=== PATIENT | male | born 1980 | race Caucasian/White ===

== ENCOUNTER 2017-10-28 19:09 | Emergency (ER) | payer SELFPAY ==
[~2017-10-28] VITALS: Ht 175.3 cm; Wt 88.5 kg
[~2017-10-28 19:09] MED LIST: IBUP200C PO; METH4TAB PO; MOME15OI TP; NAPR-243 PO; PRED20TA PO; SULF-222 PO; SULF1TAB35 PO; TRAM50TA2 PO; TRM50T PO
--- OUTSIDE RECORDS SUMMARY | 2017-10-28 19:13 | XMS REPORT ---
Author NINA Herron Organization [employer] Address Unknown Phone Unavailable Care Team Providers Care Weight Control Engineer Name Role Phone NINA ERICKSON CP Unavailable Allergies, Adverse Reactions, Alerts Substance Reaction Event Type Penicillin G Benzathine rash Drug Allergy Problems Problem Type Condition Code Onset Dates Condition Status Assessment Acute pain of right shoulder M25.511 Active Assessment Tobacco abuse Z72.0 Active Problem Tobacco abuse Z72.0 Active Medications Medication Code System Code Instructions Start Date End Date Status Dosage Cyclobenzaprine HCl [facility] [address]-24 10 MG Orally 2 times a day Jul 04, 2015 September 02, 2015 1 tablet Diclofenac Potassium [facility] [address]-77 50 MG Orally Twice a day Jul 04, 2015 September 02, 2015 1 tablet Procedures Procedure Coding System Code Date Office Visit, Est Pt., Level 3 CPT-4 71668 Jul 04, 2015 X-RAY EXAM OF SHOULDER CPT-4 99388 Jul 04, 2015 Vital Signs Date/Time: Jul 04, 2015 Temperature 98.0 F Weight 189.0 lbs Height 69 in BMI 27.91 Index Blood Pressure Diastolic 88 mmHg Blood Pressure Systolic 120 mmHg Cardiac Monitoring Heart Rate 56 bpm Results No Known Results Summary Purpose [employer] Submission
--- NOTE | 2017-10-28 19:18 | ED Upper Extremity ---
General Stated Complaint: R HAND FINGER BRUISING Source: patient Exam Limitations: no limitations History of Present Illness Date Seen by Provider: October 28, 2017 Time Seen by Provider: 19:17 Initial Comments TO ER WITH COMPLAINTS OF RIGHT PINKY FINGER INJURY. HE WAS WORKING ON HIS TRUCK WHEN THE TIP OF THE RIGHT PINKY FINGER WAS SMASHED IN A U JOINT. JUST PRIOR TO ARRIVAL.no lacerations or open wounds Onset: just prior to arrival Severity: moderate Pain/Injury Location: right 5th finger Allergies and Home Medications Allergies Coded Allergies: Penicillins (Verified Allergy, Unknown, 03/11/06) Home Medications Cephalexin 500 Mg Capsule, 500 MG PO TID Prescribed by: ASHLEY LEW on 10/28/171939 Prednisone 20 Mg Tablet, 40 MG PO DAILY Prescribed by: BRANDON WARREN on 01/08/152001 Tramadol Hcl 50 Mg Tablet, 50 MG PO Q4H PRN for PAIN Prescribed by: BRANDON WARREN on 01/08/152001 Trimethoprim/Sulfamethoxazole 1 Ea Tablet, 1 TAB PO BID Prescribed by: BRANDON WARREN on 01/08/152001 Patient Home Medication List Home Medication List Reviewed: Yes Constitutional: see HPI EENTM: see HPI Respiratory: no symptoms reported Genitourinary: no symptoms reported Musculoskeletal: no symptoms reported Skin: see HPI Psychiatric/Neurological: No Symptoms Reported Past [place]-Xfwudk-Nrclxc Hx Patient Social History Recent Foreign Travel: No Contact w/Someone Who Travel: No Immunizations Up To Date Tetanus Booster (TDap): Unknown Past Medical History Kidney Stones Family Medical History No Pertinent Family Hx Physical Exam Vital Signs Vital Signs - First Documented 10/28/17 19:14 Temp 98.0 Pulse 99 Resp 20 B/P (MAP) 147/96 (113) Pulse Ox 97 O2 Delivery Room Air Capillary Refill : General Appearance: WD/WN, no apparent distress HEENT: PERRL/EOMI, normal ENT inspection Neck: non-tender, full range of motion Respiratory: no respiratory distress, no accessory muscle use Gastrointestinal: normal bowel sounds, non tender Shoulder: normal inspection, non-tender Elbow/Forearm: normal inspection, non-tender Wrist: Yes normal inspection, Yes non-tender Hand: Right, swelling (over the distal phalanx right fifth finger with ecchymosis and small subungual hematoma) Neurologic/Psychiatric: alert, normal mood/affect, oriented x 3 Skin: normal color, warm/dry (I will) Procedures/Interventions Nail Trepanation : Method of Drainage: 18 gauge needle Sterile Dressing Applied: Yes Finger Splint: Yes Progress/Results/Core Measures Results/Orders My Orders Orders - ASHLEY LEW APRN Hand, Right, 3 Views (10/28/17 19:15) Rx-Hydrocodone/Apap 5-325 Mg (Rx-Vicodin (10/28/17 19:30) Vital Signs/I&O 10/28/17 19:14 Temp 98.0 Pulse 99 Resp 20 B/P (MAP) 147/96 (113) Pulse Ox 97 O2 Delivery Room Air Departure Impression Primary Impression: Closed fracture of tuft of distal phalanx of finger Disposition: HOME, SELF-CARE Condition: Stable Departure-Patient Inst. Decision time for Depature: 19:28 Referrals: NO,LOCAL PHYSICIAN (PCP/Family) Primary Care Physician Patient Instructions: Finger Fracture (DC) Add. Discharge Instructions: 1. Ice pack 2. Elevate finger 3. Follow-up with your doctor next week 4. Wear the finger splint for the next 2 weeks. Scripts Cephalexin (Keflex) 500 Mg Capsule 500 MG PO TID, #9 CAP Prov: ASHLEY LEW APRN 10/28/17 ASHLEY LEW APRN October 28, 2017 19:18
[2017-10-28] MEDS ORDERED: RX-HYDROCODONE/APAP 5/325 MG #4 TAB PK PO PRN (19:30)
[2017-10-28] MEDS ORDERED: HYDR-757 PO (19:30)
--- NOTE | 2017-10-28 19:38 | Diagnostic Imaging Report ---
INDICATION: Injury to hand, pain. Smashed finger between U joint on vehicle. TECHNIQUE: Three views of the right hand. CORRELATION STUDY: 02/09/2013. FINDINGS: Nondisplaced fracture involving the distal tuft of the little finger is present. Remaining osseous structures are intact and are otherwise unremarkable. Joint spaces are maintained. Density of the region of the nail bed is likely along the surface. IMPRESSION: 1. Relatively nondisplaced fracture involving the distal tuft of the right little finger. Dictated by: Dictated on workstation # [id number]
[2017-10-28] MEDS ORDERED: CEPH-507 PO (19:40)
[2017-10-28 19:54] VITALS: BP 147/96
== END 2017-10-28 19:54 | disposition home or self-care (01) ==
LOC: EDUNIT# 19:09 → ER 19:10
DX: S62.636A Displaced fracture of distal phalanx of right little finger, initial encounter for closed fracture (principal); Z88.0 Allergy status to penicillin; Z79.52 Long term (current) use of systemic steroids; W23.1XXA Caught, crushed, jammed, or pinched between stationary objects, initial encounter
CPT/HCPCS: 29130; 73130

== ENCOUNTER 2018-11-19 07:58 | Inpatient (IN) | payer SELFPAY ==
[~2018-11-19] VITALS: Ht 175.3 cm; Wt 89.8 kg
[~2018-11-19 07:58] MED LIST changes: +CEPH-507 PO; +HYDR-4226 PO
[2018-11-19] MEDS ORDERED: fentaNYL INJECTION 100 MCG/2 ML AMP IVP ONE (08:15)
[2018-11-19] MEDS ORDERED: cefTRIAXone FOR IV USE 2,000 MG in WATER (STERILE) FOR INJECTION 20 ML IV ONE (08:15)
--- NOTE | 2018-11-19 08:20 | ED EENT ---
History of Present Illness General Chief Complaint: Dental Problems/Pain Stated Complaint: ABSCESS IN MOUTH Source: patient, family Exam Limitations: no limitations History of Present Illness Date Seen by Provider: Nov 19, 2018 Time Seen by Provider: 08:15 Initial Comments This 38-year-old white male presents with progressive abscess from dental caries to the right mandibular area. The patient developed a toothache for days ago and was seen by his dentist the next day. He was placed on doxycycline 150 mg 4 times a day. The patient's pain and swelling have progressed and he now has a high fever. The patient's trismus has increased. He has having no airway impingement. He is able to handle his own secretions. He has been unable to eat due to the right jaw pain. Allergies and Home Medications Allergies Coded Allergies: Penicillins (Verified Allergy, Unknown, 03/11/06) Home Medications Cephalexin 500 Mg Capsule, 500 MG PO TID Prescribed by: ASHLEY LEW on 10/28/171939 Prednisone 20 Mg Tablet, 40 MG PO DAILY Prescribed by: BRANDON WARREN on 01/08/152001 Tramadol Hcl 50 Mg Tablet, 50 MG PO Q4H PRN for PAIN Prescribed by: BRANDON WARREN on 01/08/152001 Trimethoprim/Sulfamethoxazole 1 Ea Tablet, 1 TAB PO BID Prescribed by: BRANDON WARREN on 01/08/152001 Patient Home Medication List Home Medication List Reviewed: Yes Review of Systems Review of Systems Constitutional: see HPI, fever Eyes: Denies Photophobia Ears: Denies Pain Nose: denies epistaxis, denies pain Mouth: see HPI, pain (right mandibular area), swelling Throat: neck stiffness; denies painful swallowing, denies difficulty with fluids Respiratory: No cough Cardiovascular: No chest pain Gastrointestinal: No diarrhea, No nausea, No vomiting Musculoskeletal: No back pain; joint pain Skin: No change in color, No rash Neurological: No Symptoms Reported Hematologic/Lymphatic: No Symptoms Reported Immunological/Allergic: no symptoms reported Past Lamjuqg-Icycyp-Jlhoqw Hx Past Med/Social Hx: Reviewed Nursing Past Med/Soc Hx Patient Social History Type Used: Cigarettes Recent Foreign Travel: No Contact w/Someone Who Travel: No Immunizations Up To Date Tetanus Booster (TDap): Unknown Past Medical History Surgeries: No Respiratory: No Cardiac: No Neurological: No Sexually Transmitted Disease: No Kidney Stones Gastrointestinal: No Musculoskeletal: No Endocrine: No Cancer: No Psychosocial: No Integumentary: No Blood Disorders: No Family Medical History No Pertinent Family Hx Physical Exam Vital Signs Vital Signs - First Documented 11/19/18 08:05 Temp 98.1 Pulse 95 Resp 16 B/P (MAP) 142/98 (113) Pulse Ox 96 O2 Delivery Room Air Height, Weight, BMI Height: 5'9.00" Weight: 195lbs. oz. 88.338435ee; BMI Method:Stated General Appearance: WD/WN, mild distress Eyes: bilateral eye normal inspection Ears: bilateral ear auricle normal Nose: normal inspection; No discharge Mouth/Throat: mandibular swelling, other (there is a an apparent abscess over the right mandibular third molar. The fluctuant area is markedly tender. There is associated marked soft tissue swelling over the right mandible suggestive of a soft tissue abscess. There is no airway impingement. The patient is able to handle his own secretions) Neck: non-tender, supple, normal inspection Cardiovascular: normal peripheral pulses, regular rate, rhythm Respiratory: chest non-tender, lungs clear, normal breath sounds Gastrointestinal: normal bowel sounds, non tender, soft Neurologic/Psychiatric: no motor/sensory deficits, alert, normal mood/affect, oriented x 3 Skin: normal color, warm/dry Progress/Results/Core Measures Results/Orders Lab Results Laboratory Tests Test 11/19/18 08:12 11/19/18 08:25 Range/Units White Blood Count 17.6 H 4.3-11.0 10^3/uL Red Blood Count 5.66 4.35-5.85 10^6/uL Hemoglobin 17.0 13.3-17.7 G/DL Hematocrit 48 40-54 % Mean Corpuscular Volume 85 80-99 FL Mean Corpuscular Hemoglobin 30 25-34 PG Mean Corpuscular Hemoglobin Concent 36 32-36 G/DL Red Cell Distribution Width 13.6 10.0-14.5 % Platelet Count 199 130-400 10^3/uL Mean Platelet Volume 10.6 H 7.4-10.4 FL Neutrophils (%) (Auto) 85 H 42-75 % Lymphocytes (%) (Auto) 7 L 12-44 % Monocytes (%) (Auto) 8 0-12 % Eosinophils (%) (Auto) 0 0-10 % Basophils (%) (Auto) 0 0-10 % Neutrophils # (Auto) 15.0 H 1.8-7.8 X 10^3 Lymphocytes # (Auto) 1.2 1.0-4.0 X 10^3 Monocytes # (Auto) 1.4 H 0.0-1.0 X 10^3 Eosinophils # (Auto) 0.0 0.0-0.3 10^3/uL Basophils # (Auto) 0.0 0.0-0.1 10^3/uL Erythrocyte Sedimentation Rate 28 H 0-15 MM/HR Lactic Acid Level 0.85 0.50-2.00 MMOL/L My Orders Orders - JENN BARRIOS MD Blood Culture (11/19/18 08:11) Cbc With Automated Diff (11/19/18 08:11) Ct Maxillofacial Wo (11/19/18 08:11) Erythrocyte Sedimentation Rate (11/19/18 08:11) Lactic Acid Analyzer (11/19/18 08:11) Ns Iv 1000 Ml (Sodium Chloride 0.9%) (11/19/18 08:15) Ceftriaxone For Iv Use (Rocephin For I (11/19/18 08:15) Fentanyl Injection (Sublimaze Injection (11/19/18 08:15) Manual Differential (11/19/18 08:12) Medications Given in ED Current Medications Medications Dose Ordered Sig/Jessenia Route Start Time Stop Time Status Last Admin Dose Admin Ceftriaxone Sodium 2000 mg/ Sterile Water 20 ml @ 240 mls/hr ONCE ONCE IV 11/19/18 08:15 11/19/18 08:19 DC 11/19/18 09:08 240 MLS/HR Fentanyl Citrate 50 mcg ONCE ONCE IVP 11/19/18 08:15 11/19/18 08:16 DC 11/19/18 08:23 50 MCG Vital Signs/I&O 11/19/18 08:05 Temp 98.1 Pulse 95 Resp 16 B/P (MAP) 142/98 (113) Pulse Ox 96 O2 Delivery Room Air Progress Progress Note : Time: 09:12 Progress Note The patient received 50 g of fentanyl IV and 2 g of Rocephin IV. Patient's laboratory and CT evaluation demonstrated a probable abscess in the right mandibular region and an elevated white count of 17,000 with an associated elevated sedimentation rate of 28. The patient's lactic acid was normal. Telephone consultation was undertaken with Dr. Rodriguez who is kind enough to admit the patient orders are given written and the patient was transferred to the floor. Departure Communication (Admissions) Time/Spoke to Admitting Phy: 09:13 Dr. Rodriguez Impression Primary Impression: Dental abscess Disposition: ADMITTED INPATIENT Condition: Improved Admissions Decision to Admit Reason: Admit from ER (General) Decision to Admit/Date: Nov 19, 2018 Time/Decision to Admit Time: 09:14 Departure-Patient Inst. Referrals: NO,LOCAL PHYSICIAN (PCP/Family) Primary Care Physician JENN BARRIOS MD Nov 19, 2018 08:20
[2018-11-19 08:23] LABS: BASOPHILS % (AUTO) 0 % (0-10); EOSINOPHILS % (AUTO) 0 % (0-10); HEMATOCRIT 48 % (40-54); LYMPHOCYTES # (AUTO) 1.2 X 10^3 (1.0-4.0); LYMPHOCYTES % (AUTO) 7 % (12-44); MEAN CORPUSCULAR HEMOGLOBIN 30 PG (25-34); MEAN CORPUSCULAR HGB CONC 36 G/DL (32-36); MEAN CORPUSCULAR VOLUME 85 FL (80-99); MEAN PLATELET VOLUME 10.6 FL (7.4-10.4); MONOCYTES # (AUTO) 1.4 X 10^3 (0.0-1.0); MONOCYTES % (AUTO) 8 % (0-12); NEUTROPHILS % (AUTO) 85 % (42-75); PLATELET COUNT 199 10^3/uL (130-400); RED CELL DISTRIBUTION WIDTH 13.6 % (10.0-14.5); WHITE BLOOD COUNT 17.6 10^3/uL (4.3-11.0)
[2018-11-19] MEDS: NS IV 1000 ML 1,000 ML IV SCH ×3 (08:23→21:41)
[2018-11-19 08:55] LABS: ERYTHROCYTE SEDIMENTATION RATE 28 MM/HR (0-15)
--- NOTE | 2018-11-19 08:56 | NUR ---
LAB CONTACTED FOR BLOOD DRAW ET LAB REQUEST ER TO DRAW 2ND SET.
--- NOTE | 2018-11-19 08:58 | Diagnostic Imaging Report ---
PROCEDURE: CT maxillofacial without contrast. TECHNIQUE: Multiple contiguous axial images were obtained through the facial bones without the use of intravenous contrast. Auto Exposure Controls were utilized during the CT exam to meet ALARA standards for radiation dose reduction. INDICATION: Abscess in the right mouth. COMPARISON: 12/29/2013 FINDINGS: There is streak artifact from the dental hardware/amalgam. No acute osseous abnormality is seen in the face. The paranasal sinuses are clear. The orbits and globes appear normal. There is marked superficial and deep soft tissue edema, superficial and deep to the right mandible. There is a soft tissue density which measures 2.8 cm in diameter located near the mandibular body just superior to the right submandibular gland. There is also a soft tissue density lateral to the subendometrial gland which appears to cause mass effect on it, measuring 2.6 x 1.8 cm in size. Numerous prominent cervical chain lymph nodes are seen on the right. IMPRESSION: 1. Marked superficial and deep soft tissue edema about the right mandibular body with masslike density superior to the right submandibular gland which could represent enlarged lymph node or abscess. Additional soft tissue density lateral to the right submandibular gland likely represents a prominent lymph node. A postcontrast exam should be considered. 2. Additional right cervical lymph nodes are likely reactive. 3. No acute osseous abnormality is seen. Dictated by: Dictated on workstation # [id number]
[2018-11-19 09:24] LABS: LYMPHOCYTES % (MANUAL) 2 %; MONOCYTES % (MANUAL) 9 %; NEUTROPHILS % (MANUAL) 86 %; RBC MORPH NORMAL; REACTIVE LYMPHOCYTES 3 %
[2018-11-19] MEDS ORDERED: CLINDAMYCIN 600 MG/50 ML IVPB 50 ML IV ONE (09:30)
--- OUTSIDE RECORDS SUMMARY | 2018-11-19 09:30 | XMS REPORT | Continuity of Care Document ---
Author Organization Unknown Address Unknown Allergies Active Description Code Type Severity Reaction Onset Reported/Identified Relationship to Patient Clinical Status Yes Penicillins [id number] Drug Allergy Unknown N/A 03/11/2006 Medications There is no data. Problems Date Dx Coded Attending Type Code Diagnosis Diagnosed By 01/20/2011 782.0 DISTURBANCE OF SKIN SENSATION 01/08/2015 BRANDON HOOKS Ot 719.42 JOINT PAIN-UP/ARM 01/08/2015 BRANDON HOOKS Ot 726.33 OLECRANON BURSITIS 03/31/2016 SARAHY ROBLERO SPA COORDINATOR Ot M25.472 EFFUSION, LEFT ANKLE 03/31/2016 SARAHY ROBLERO SPA COORDINATOR Ot M25.572 PAIN IN LEFT ANKLE AND JOINTS OF LEFT FO 03/31/2016 SARAHY ROBLERO SPA COORDINATOR Ot S99.912A UNSPECIFIED INJURY OF LEFT ANKLE, INITIA 03/31/2016 SARAHY ROBLERO SPA COORDINATOR Ot X50.9XXA OTHER AND UNSPECIFIED OVREXRTN OR STRNOU 03/31/2016 SARAHY ROBLERO SPA COORDINATOR Ot Y92.[address] IN [facility] NON-INSTITUT (PRIVATE 03/31/2016 SARAHY ROBLERO SPA COORDINATOR Ot Y99.8 OTHER EXTERNAL CAUSE STATUS 04/02/2016 SARAHY ROBLERO SPA COORDINATOR Ot M25.472 EFFUSION, LEFT ANKLE 04/02/2016 SARAHY ROBLERO SPA COORDINATOR Ot M25.572 PAIN IN LEFT ANKLE AND JOINTS OF LEFT FO 04/02/2016 SARAHY ROBLERO SPA COORDINATOR Ot S99.912A UNSPECIFIED INJURY OF LEFT ANKLE, INITIA 04/02/2016 SARAHY ROBLERO SPA COORDINATOR Ot X50.9XXA OTHER AND UNSPECIFIED OVREXRTN OR STRNOU 04/02/2016 SARAHY ROBLERO SPA COORDINATOR Ot Y92.[address] IN [facility] NON-INST[facility] (PRIVATE 04/02/2016 SARAHY ROBLERO SPA COORDINATOR Ot Y99.8 OTHER EXTERNAL CAUSE STATUS 04/16/2016 SARAHY ROBLERO SPA COORDINATOR Ot M25.472 EFFUSION, LEFT ANKLE 04/16/2016 SARAHY ROBLERO SPA COORDINATOR Ot M25.572 PAIN IN LEFT ANKLE AND JOINTS OF LEFT FO 04/16/2016 SARAHY ROBLERO SPA COORDINATOR Ot S99.912A UNSPECIFIED INJURY OF LEFT ANKLE, INITIA 04/16/2016 SARAHY ROBLERO SPA COORDINATOR Ot X50.9XXA OTHER AND UNSPECIFIED OVREXRTN OR STRNOU 04/16/2016 SARAHY ROBLERO SPA COORDINATOR Ot Y92.[address] IN [facility] NON-[facility] (PRIVATE 04/16/2016 SARAHY ROBLERO SPA COORDINATOR Ot Y99.8 OTHER EXTERNAL CAUSE STATUS 10/28/2017 SARAHY ROBLERO SPA COORDINATOR Ot M25.472 EFFUSION, LEFT ANKLE 10/28/2017 SARAHY ROBLERO SPA COORDINATOR Ot M25.572 PAIN IN LEFT ANKLE AND JOINTS OF LEFT FO 10/28/2017 SARAHY ROBLERO SPA COORDINATOR Ot S99.912A UNSPECIFIED INJURY OF LEFT ANKLE, INITIA 10/28/2017 SARAHY ROBLERO SPA COORDINATOR Ot X50.9XXA OTHER AND UNSPECIFIED OVREXRTN OR STRNOU 10/28/2017 SARAHY ROBLERO SPA COORDINATOR Ot Y92.[address] IN [facility] NON[facility] (PRIVATE 10/28/2017 SARAHY ROBLERO SPA COORDINATOR Ot Y99.8 OTHER EXTERNAL CAUSE STATUS 10/28/2017 SARAHY ROBLERO SPA COORDINATOR Ot M25.472 EFFUSION, LEFT ANKLE 10/28/2017 SARAHY ROBLERO SPA COORDINATOR Ot M25.572 PAIN IN LEFT ANKLE AND JOINTS OF LEFT FO 10/28/2017 SARAHY ROBLERO SPA COORDINATOR Ot S99.912A UNSPECIFIED INJURY OF LEFT ANKLE, INITIA 10/28/2017 SARAHY ROBLERO SPA COORDINATOR Ot X50.9XXA OTHER AND UNSPECIFIED OVREXRTN OR STRNOU 10/28/2017 SARAHY ROBLERO SPA COORDINATOR Ot Y92.[address] IN [facility] NON-[facility] (PRIVATE 10/28/2017 SARAHY ROBLERO SPA COORDINATOR Ot Y99.8 OTHER EXTERNAL CAUSE STATUS Procedures There is no data. Results Test Result Range Complete blood count (CBC) with automated white blood cell (WBC) differential - 11/19/18 08:12 Blood leukocytes automated count (number/volume) 17.6 10*3/uL 4.3-11.0 Blood erythrocytes automated count (number/volume) 5.66 10*6/uL 4.35-5.85 Venous blood hemoglobin measurement (mass/volume) 17.0 g/dL 13.3-17.7 Blood hematocrit (volume fraction) 48 % 40-54 Automated erythrocyte mean corpuscular volume 85 [foz_us] 80-99 Automated erythrocyte mean corpuscular hemoglobin (mass per erythrocyte) 30 pg 25-34 Automated erythrocyte mean corpuscular hemoglobin concentration measurement (mass/volume) 36 g/dL 32-36 Automated erythrocyte distribution width ratio 13.6 % 10.0- 14.5 Automated blood platelet count (count/volume) 199 10*3/uL 130-400 Automated blood platelet mean volume measurement 10.6 [foz_us] 7.4-10.4 Automated blood neutrophils/100 leukocytes 85 % 42-75 Automated blood lymphocytes/100 leukocytes 7 % 12-44 Blood monocytes/100 leukocytes 8 % 0-12 Automated blood eosinophils/100 leukocytes 0 % 0-10 Automated blood basophils/100 leukocytes 0 % 0-10 Blood neutrophils automated count (number/volume) 15.0 10*3 1.8-7.8 Blood lymphocytes automated count (number/volume) 1.2 10*3 1.0-4.0 Blood monocytes automated count (number/volume) 1.4 10*3 0.0- 1.0 Automated eosinophil count 0.0 10*3/uL 0.0-0.3 Automated blood basophil count (count/volume) 0.0 10*3/uL 0.0-0.1 Manual absolute plasma cell count - 11/19/18 08:12 Blood monocytes/100 leukocytes 9 % NRG Manual blood segmented neutrophils/100 leukocytes 86 % NRG Manual blood lymphocytes/100 leukocytes 2 % NRG Blood lymphocytes variant/100 leukocytes 3 % NRG Blood erythrocyte morphology finding identification NORMAL NRG Erythrocyte sedimentation rate by westergren method - 11/19/18 08:12 Erythrocyte sedimentation rate by westergren method 28 mm 0-15 Blood lactic acid measurement (moles/volume) - 11/19/18 08:25 Blood lactic acid measurement (moles/volume) 0.85 mmol/L 0.50- 2.00 Encounters ACCT No. Visit Date/Time Discharge Status Pt. Type Provider Facility Loc./Unit Complaint [id number] 10/28/2017 19:10:00 10/28/2017 19:54:00 DIS Emergency ASHLEY LEW APRN [facility] ER R HAND FINGER BRUISING [id number] 03/31/2016 07:54:00 03/31/2016 23:59:59 CLS Outpatient SARAHY ROBLERO APRN [facility] RAD LT FOOT/ANKLE PAIN [id number] 01/08/2015 19:36:00 01/08/2015 20:08:00 DIS Emergency BRANDON HOOKS [facility] ER R ELBOW PAIN [id number] 05/03/2014 20:38:00 05/03/2014 21:06:00 DIS Emergency SHANNON EGAN MD [facility] ER [id number] 12/29/2013 20:40:00 12/29/2013 21:55:00 DIS Emergency [id number] 02/09/2013 20:17:00 02/09/2013 21:11:00 DIS Emergency [id number] 11/19/2018 08:27:00 Document Registration [id number] 01/08/2015 19:37:30 ACT Document Registration [id number] 04/30/2017 14:00:00 04/30/2017 23:59:59 CLS Outpatient YURI ARCHULETA [facility] [id number] 01/20/2011 15:46:00 Document Registration
--- NOTE | 2018-11-19 10:00 | NUR ---
RODNEY CAMI Polanco admitted to room 419-1, with an admitting diagnosis of RIGHT MANDIBULAR ABSCESS AND 2ND DEGREE DENTAL CARRIES, on 11/19/18 from ED via W/C, accompanied by ED STAFF. CAMI STEVENS introduced to surroundings, call light, bed controls, phone, TV, temperature control, lights, meal times, smoking policy, visitor policy, side rail policy, bathrooms and showers. Patient Rights given to patient in the handbook. CAMI STEVENS verbalizes understanding that [facility] is not responsible for the loss or damage to any personal effects or valuables that are kept in the patients possession during their hospitalization.
[2018-11-19 12:00] VITALS: BP 164/83
[2018-11-19] MEDS: ACETAMINOPHEN 500 MG TAB (TYLENOL) PO PRN ×2 (12:58→19:51)
[2018-11-19 15:42] VITALS: BP 118/61
[2018-11-19] MEDS: NS IV SCH ×4 (17:24→22:25)
[2018-11-19] MEDS: CLINDAMYCIN IV SCH ×4 (17:24→22:25)
[2018-11-19] MEDS: fentaNYL INJECTION 100 MCG/2 ML AMP IVP PRN (19:49)
[2018-11-19 19:58] VITALS: BP 139/88
[2018-11-19 23:39] VITALS: BP 145/88
[2018-11-20] VITALS (12 sets, daily range): BP systolic 128–163; BP diastolic 69–99
[2018-11-20] MEDS: CLINDAMYCIN IV SCH ×8 (04:04→22:46)
[2018-11-20] MEDS: NS IV SCH ×8 (04:04→22:46)
[2018-11-20] MEDS: ACETAMINOPHEN 500 MG TAB (TYLENOL) PO PRN ×2 (04:09→13:26)
[2018-11-20 04:44] LABS: BASOPHILS % (AUTO) 0 % (0-10); EOSINOPHILS % (AUTO) 0 % (0-10); HEMATOCRIT 45 % (40-54); HEMOGLOBIN 15.5 G/DL (13.3-17.7); LYMPHOCYTES # (AUTO) 0.8 X 10^3 (1.0-4.0); LYMPHOCYTES % (AUTO) 6 % (12-44); MEAN CORPUSCULAR HEMOGLOBIN 29 PG (25-34); MEAN CORPUSCULAR HGB CONC 35 G/DL (32-36); MEAN CORPUSCULAR VOLUME 84 FL (80-99); MEAN PLATELET VOLUME 10.7 FL (7.4-10.4); MONOCYTES # (AUTO) 1.3 X 10^3 (0.0-1.0); MONOCYTES % (AUTO) 9 % (0-12); NEUTROPHILS # (AUTO) 11.9 X 10^3 (1.8-7.8); NEUTROPHILS % (AUTO) 85 % (42-75); PLATELET COUNT 204 10^3/uL (130-400); RED CELL DISTRIBUTION WIDTH 13.7 % (10.0-14.5)
[2018-11-20 05:12] LABS: ERYTHROCYTE SEDIMENTATION RATE 47 MM/HR (0-15)
[2018-11-20] MEDS: NS IV 1000 ML 1,000 ML IV SCH ×2 (08:46→23:46)
[2018-11-20] MEDS ORDERED: ONDANSETRON 4 MG/2 ML (SDV) Z0FRAN ONE ×2 (10:25→11:46)
[2018-11-20] MEDS ORDERED: LIDOCAINE PF 2% 5 ML (XYLOCAINE) VIAL ONE (10:25)
[2018-11-20] MEDS ORDERED: fentaNYL INJECTION 100 MCG/2 ML AMP ONE (10:25)
[2018-11-20] MEDS ORDERED: proPOfol 200 MG/20 ML (DIPRIVAN) VIAL IV ONE (10:25)
[2018-11-20] MEDS ORDERED: MIDAZOLAM 2 MG/2 ML (VERSED) VIAL ONE (10:26)
[2018-11-20] MEDS ORDERED: SEVOFLURANE (ULTANE) 15 ML INHAL SOLN ONE ×3 (10:27→11:43)
[2018-11-20] MEDS ORDERED: LIDOCAINE/EPI 2% 1:100,00 (XYLOCAINE) 20 ML VIAL ONE (11:01)
[2018-11-20] MEDS ORDERED: NEO/POLY/BAC (NEOSPORIN) OINT 15 GM TUBE ONE (11:01)
[2018-11-20] MEDS ORDERED: ROPIVACAINE 5MG/ML 30ML VIAL ONE (11:18)
[2018-11-20] MEDS ORDERED: ROCURONIUM 10 MG/ML 5 ML SYRINGE IV ONE (11:34)
[2018-11-20] MEDS ORDERED: GLYCOPYRROLATE 0.2 MG/ML (ROBINUL) 2 ML VIAL ONE (11:44)
[2018-11-20] MEDS ORDERED: NEOSTIGMINE 1 MG/ML 5 ML SYRINGE ONE (11:44)
[2018-11-20] MEDS ORDERED: LACTATED RINGERS 1,000 ML IV PRN (11:45)
[2018-11-20] MEDS ORDERED: morphine INJ 10 MG/ML 1ML (SYR OR VIAL) ONE (11:46)
[2018-11-20] MEDS ORDERED: PROMETHAZINE INJ 25 MG/ML (PHENERGAN) AMP IVP ONE (12:15)
[2018-11-20] MEDS ORDERED: ONDANSETRON 4 MG/2 ML (SDV) Z0FRAN IVP PRN (12:15)
[2018-11-20] MEDS ORDERED: morphine INJ 10 MG/ML 1ML (SYR OR VIAL) IVP ONE (12:15)
[2018-11-20] MEDS ORDERED: MEPERIDINE (DEMEROL) INJ 50 MG/ML IVP ONE (12:15)
[2018-11-20] MEDS ORDERED: HYDROmorphone 2 MG/ML VIAL (DILAUDID) IV ONE (12:15)
[2018-11-20] MEDS: ceFAZolin INJECTION 1,000 MG in WATER (STERILE) FOR INJECTION 10 ML IV SCH ×2 (14:36→22:47)
[2018-11-20] MEDS: fentaNYL INJECTION 100 MCG/2 ML AMP IVP PRN ×2 (14:42→21:30)
[2018-11-21] VITALS: BP 139/75
[2018-11-21] MEDS: fentaNYL INJECTION 100 MCG/2 ML AMP IVP PRN ×3 (03:04→16:36)
[2018-11-21 03:55] VITALS: BP 137/81
[2018-11-21] MEDS: NS IV SCH ×8 (04:23→22:16)
[2018-11-21] MEDS: CLINDAMYCIN IV SCH ×8 (04:23→22:16)
[2018-11-21] MEDS: ceFAZolin INJECTION 1,000 MG in WATER (STERILE) FOR INJECTION 10 ML IV SCH ×3 (05:54→22:16)
[2018-11-21 08:03] VITALS: BP 116/78
[2018-11-21] MEDS: NS IV 1000 ML 1,000 ML IV SCH ×2 (10:07→22:15)
[2018-11-21] MEDS ORDERED: CLIN150C17 PO (11:07)
[2018-11-21 12:29] VITALS: BP 115/77
--- NOTE | 2018-11-21 14:58 | Anesthesia-General Post-Op ---
General Patient Condition Mental Status/LOC: Same as Preop Cardiovascular: Satisfactory Nausea/Vomiting: Absent Respiratory: Satisfactory Pain: Controlled Complications: Absent Post Op Complications Complications None Follow Up Care/Instructions Patient Instructions None needed. Anesthesia/Patient Condition Patient Condition Patient is doing well, no complaints, stable vital signs, no apparent adverse anesthesia problems. No complications reported per nursing. LISE BAUTISTA CRNA Nov 21, 2018 14:58
[2018-11-21 15:35] VITALS: BP 124/77
[2018-11-21] MEDS: KETOROLAC 30 MG/ML VIAL IVP PRN (17:32)
[2018-11-21 19:10] VITALS: BP 137/87
[2018-11-22 00:25] VITALS: BP 137/84
[2018-11-22] MEDS: NS IV SCH ×4 (04:41→10:18)
[2018-11-22] MEDS: CLINDAMYCIN IV SCH ×4 (04:41→10:18)
[2018-11-22] MEDS: KETOROLAC 30 MG/ML VIAL IVP PRN (04:47)
[2018-11-22] MEDS: ceFAZolin INJECTION 1,000 MG in WATER (STERILE) FOR INJECTION 10 ML IV SCH (06:46)
[2018-11-22] MEDS: NS IV 1000 ML 1,000 ML IV SCH (07:55)
[2018-11-22 08:10] VITALS: BP 139/85
--- NOTE | 2018-11-22 12:29 | NUR ---
IV REMOVED. SITE CLEAR. INSTRUCTIONS GIVEN AND DC'D WITH FATHER. DRESSING D/I ON RT NECK/FACE.
--- NOTE | 2018-11-22 14:04 | Diagnostic Imaging Report ---
INDICATION: Abscess. FINDINGS: Panorex radiograph reveals no bony destruction of the mandible, no abnormal periapical lucencies. IMPRESSION: No pathological finding apparent by [facility]. Dictated by: Dictated on workstation # [id number]
--- NOTE | 2018-12-14 16:46 | HISTORY AND PHYSICAL ---
DATE OF SERVICE: 11/19/2018 SERVICE: lab associate. ADMITTING DIAGNOSIS: Right submandibular abscess. HISTORY OF PRESENT ILLNESS: Upon evaluation, his vital signs are blood pressure 140/82, his pulse rate was 87, respiratory rate was 18, and temperature was 101.7. SOCIAL HISTORY: Positive for smoking. Denies any illicit drug use. PAST MEDICAL HISTORY: Noncontributory. PAST SURGICAL HISTORY: No surgeries or procedures reported. ALLERGIES: PENICILLIN ONLY. MEDICATIONS: He takes no medications. PHYSICAL EXAMINATION: HEENT: His oral cavity and oropharynx has grossly carious tooth #31 trismus. He can only open to 10 mm. His extraocular movements are intact. Pupils are equal, reactive, round and accommodate. NECK: His trachea is midline; however, he does have a right submandibular abscess with CT of an abscess, approximately 2 x 5 cm inferior to the mandible. HEART: Regular rate and rhythm. He has no costovertebral angle tenderness. LUNGS: No wheezes or rales. ABDOMEN: Soft, nontender, nondistended. He has no clubbing, cyanosis or edema. EXTREMITIES: He has full range of motion. RECTAL: We did not perform rectal exam as it is not pertinent. ASSESSMENT AND PLAN: He has a right submandibular abscess. He will be admitted, given intravenous antibiotics and scheduled for surgery at the earliest operating time for procedure. Job ID: [id number] DocumentID: [id number] Dictated Date: 12/14/2018 16:27:10 Tool Repair Technician Date: 12/14/2018 16:45:11 Dictated By: ANDREW MCGRAW DDS
--- NOTE | 2018-12-15 02:31 | OPERATIVE REPORT ---
DATE OF SERVICE: 11/20/2018 SERVICE: felt cutter. SURGEON: Andrew Mcgraw DDS. LOGISTICS SOLUTION MANAGER: ANESTHESIA: General endotracheal. COMPLICATIONS: There were no complications. BLOOD LOSS: Minimal. FLUIDS: 800 mL of crystalloid. Instrument, needle and sponge counts were correct x 2. PROCEDURE: Removal of tooth #31 and incision and drainage of a right submandibular abscess extraorally and intraorally as well as incision and drainage of submental abscess. HISTORY OF PRESENT ILLNESS AND INDICATION FOR PROCEDURE: The patient is a 38-year-old essentially healthy white male, who presented to the emergency room and was admitted to the emergency room to my service after speaking with the emergency room doctor. He was then placed on the fourth medical wing. At this point, he was evaluated and did indeed have a right submandibular abscess with trismus; he could only open to 10 to 15 mm. Obvious edema and tenderness and pain to palpation in that region. After a Panorex x-ray was completed, it was determined that tooth #31 was grossly carious and nonrestorable and was etiology of this abscess. After this, I spoke in extension with the patient. Advised him of his diagnosis, the risks versus benefits for the procedure as well as the risks versus benefits for treatment at this time. The appropriate time was also allowed for questions and these were answered. After these, the surgical consent was signed and he was scheduled for surgery at the earliest operating time. DESCRIPTION OF PROCEDURE: The patient was taken to the operating room and placed on the operating room table and the appropriate monitors were placed and anesthesia was induced via the oral endotracheal intubation without difficulty. Once this was secured, the surgeon left the room, scrubbed, returned donned sterile gowns and gloves, prepped and draped the patient in the usual standard sterile fashion. After this, with a pause of the local anesthesia approximately 2 fingerbreadths beneath the inferior border of the mandible just inferior to the greatest point of edema and then also performed a unilateral mandibular block on the right side of tissue. I used a 15-blade to excise through the skin and subcuticular tissue and then a [place] hemostat was used to bluntly dissect into the abscess cavity, at which point, we were able to drain significant amount of purulent drainage. Cultures were taken and then I also dissected lingually on the medial side of the mandible through the abscess cavity as well as up into the submental region. After this, we copiously irrigated with hydrogen peroxide and saline. I then placed two 16-Urdu red rubber catheters and these were sewn in place to maintain drainage of the abscess. This completed our procedure extraorally. I then extracted tooth #31 without difficulty and also made an incision in the buccal vestibule on the right side; however, I was not able to leave any purulent drainage at that point. After this, we placed the gauze for hemostasis. We had placed a throat pack, this was removed and then he was allowed to emerge from his general anesthetic until he was breathing spontaneously and then extubated and then transported to the recovery room where he was assessed to have stable vital signs, breathing spontaneously with a pulse ox of 99%. Job ID: [id number] DocumentID: [id number] Dictated Date: 12/14/2018 16:23:45 Film Inspector Date: 12/14/2018 23:28:50 Dictated By: ANDREW MCGRAW DDS
== END 2018-11-22 12:31 | disposition home or self-care (01) | DRG 137 ==
LOC: EDUNIT# 07:58 → ER 07:59 → 4TH 09:10
PROVIDERS: ADMIT Specialist; ATTEND Specialist
PROC: 0W933ZZ Drainage of Oral Cavity and Throat, Percutaneous Approach (ICD-10-PCS; 2018-11-20)
PROC: 0CDXXZ0 Extraction of Lower Tooth, Single, External Approach (ICD-10-PCS; 2018-11-20)
PROC: 0W930ZZ Drainage of Oral Cavity and Throat, Open Approach (ICD-10-PCS; principal; 2018-11-20 11:30)
DX: K12.2 Cellulitis and abscess of mouth (principal); L02.01 Cutaneous abscess of face; R25.2 Cramp and spasm; F17.210 Nicotine dependence, cigarettes, uncomplicated
CPT/HCPCS: 36415; 70355; 70486; 83605; 85007; 85025; 85027; 85652; 87040; 87070; 87075; 87076; 87081; 87185; 87205; 96361; 96365; 96375

== ENCOUNTER 2020-03-02 22:25 | Emergency (ER) | payer SELFPAY ==
[~2020-03-02 22:25] MED LIST changes: +CLIN150C17 PO
== END 2020-03-02 22:45 | disposition left against medical advice (07) ==
LOC: EDUNIT# 22:25 → ER 22:27
DX: M79.643 Pain in unspecified hand (principal)

== ENCOUNTER 2021-01-23 03:17 | Emergency (ER) | payer SELFPAY ==
[~2021-01-23] VITALS: Ht 175.2 cm; Wt 78.0 kg
[~2021-01-23 03:17] MED LIST changes: -CLIN150C17 PO; +CLIN150C18 PO
[2021-01-23] MEDS ORDERED: KETOROLAC 60 MG/2 ML VIAL IM STA (03:45)
[2021-01-23] MEDS ORDERED: COLCHICINE 0.6 MG (COLCRYS) TABLET PO ONE ×2 (03:45)
[2021-01-23] MEDS ORDERED: HYDROcodone/APAP 7.5 MG/325 MG (LORTAB, LORCET PLUS) TABLET PO STA (05:13)
[2021-01-23] MEDS ORDERED: predniSONE 20 MG TAB PO ONE (05:15)
--- NOTE | 2021-01-23 05:36 | ED Lower Extremity ---
General Chief Complaint: Lower Extremity Stated Complaint: LEFT FOOT,BIG TOE PAIN & SWELLING Nursing Triage Note: Pt ambulatory into ER with obvious limp. Pt complains of L. Foot/1st Toe Pain x2 days. Pt denies injury or trauma to toe. Pt has some swelling to big toe. Patient states that it hurts and goes up into top of foot area. Source: patient Exam Limitations: no limitations History of Present Illness Date Seen by Provider: Jan 23, 2021 Time Seen by Provider: 03:36 Initial Comments Here with report of left great toe pain. No known injury. Pain is been going on for 2 days and has worsened. Does have history of ankle injury but does not know what the injury was and had similar pain then. Denies fever chills. Onset: other (2 days ago) Severity: moderate Pain/Injury Location: left 1st toe Method of Injury: unknown Modifying Factors: Improves With Immobilization; Worse With Movement Allergies and Home Medications Allergies Coded Allergies: Penicillins (Verified Allergy, Unknown, 03/11/06) Home Medications No Active Prescriptions or Reported Meds Patient Home Medication List Home Medication List Reviewed: Yes Review of Systems Constitutional: see HPI; No chills, No fever Respiratory: no symptoms reported Cardiovascular: no symptoms reported Musculoskeletal: see HPI, joint pain, joint swelling Skin: change in color; No lesions Psychiatric/Neurological: No Symptoms Reported Past Jpkvgpq-Wmnwll-Oamzxb Hx Patient Social History Tobacco Use?: Yes Tobacco type used: Cigarettes Smoking Status: Current Everyday Smoker Use of E-Cig and/or Vaping dev: No Substance use?: No Alcohol Use?: Yes Alcohol type: Beer, Hard Liquor Alcohol Frequency: Several times a month Pt feels they are or have been: No Immunizations Up To Date Tetanus Booster (TDap): Unknown Influenza Vaccine Up-to-Date: No; Not Current Past Medical History Surgeries: No Respiratory: No Cardiac: No Neurological: No Sexually Transmitted Disease: No Kidney Stones Gastrointestinal: No Musculoskeletal: No Endocrine: No Cancer: No Psychosocial: No Integumentary: No Blood Disorders: No Family Medical History Reviewed Nursing Family Hx No Pertinent Family Hx Physical Exam Vital Signs Vital Signs - First Documented 01/23/21 03:21 Temp 36.8 Pulse 67 Resp 18 B/P (MAP) 169/99 (122) Pulse Ox 97 O2 Delivery Room Air Capillary Refill : Less Than 3 Seconds Height, Weight, BMI Height: 5'9.00" Weight: 198lbs. 0.0oz. 89.840276oa; 25.00 BMI Method:Stated General Appearance: WD/WN, no apparent distress Cardiovascular: regular rate, rhythm, no murmur Respiratory: lungs clear, normal breath sounds Feet: left foot limited range of motion, left foot pain, left foot soft tissue tenderness, left foot swelling, left foot other (All findings to the great toe including redness, swelling and significant pain on palpation or movement.) Neurologic/Psychiatric: alert, oriented x 3 Skin: warm/dry, other (Erythemic great toe on left) Progress/Results/Core Measures Results/Orders My Orders Orders - CK KEARNEY MD Ketorolac Injection (Toradol Injection) (01/23/21 03:45) Foot, Left, 3 Views (01/23/21 03:45) Colchicine Tablet (Colcrys Tablet) (01/23/21 03:45) Colchicine Tablet (Colcrys Tablet) (01/23/21 03:45) Hydrocodone/Apap 7.5/325 Tab (Lortab 7. (01/23/21 05:13) Prednisone Tablet (Deltasone Tablet) (01/23/21 05:15) Medications Given in ED Current Medications Medications Dose Ordered Sig/Jessenia Route Start Time Stop Time Status Last Admin Dose Admin Colchicine 0.6 mg ONCE ONCE PO 01/23/21 03:45 01/23/21 03:46 DC 01/23/21 03:56 0.6 MG Colchicine 0.6 mg ONCE ONCE PO 01/23/21 03:45 01/23/21 03:46 DC 01/23/21 04:51 0.6 MG Vital Signs/I&O 01/23/21 03:21 Temp 36.8 Pulse 67 Resp 18 B/P (MAP) 169/99 (122) Pulse Ox 97 O2 Delivery Room Air Blood Pressure Mean: 122 Progress Progress Note : Progress Note Seen and evaluated. Findings consistent with gout we will go ahead and get x- ray. Colchicine 0.6 mg p.o. now and repeat x1 in 1 hour. Toradol 60 mg IM. Monitor patient. 0530: Pain only sort of controlled with initial dosings. Hydrocodone 7.5/325 ordered. Prednisone 40 mg p.o. ordered. Discharged home with return precautions. Patient verbalized understanding of instructions and agreement with plan. Departure Impression Primary Impression: Pain of left great toe Disposition: HOME, SELF-CARE Condition: Stable Departure-Patient Inst. Decision time for Depature: 05:37 Referrals: NO,LOCAL PHYSICIAN (PCP/Family) Primary Care Physician Patient Instructions: Gout (DC) Add. Discharge Instructions: All discharge instructions reviewed with patient and/or family. Voiced understanding. Take medications as directed. If you are not in severe pain you may take Tylenol and/or ibuprofen. Do not take the Tylenol with the prescribed pain medicine as both have acetaminophen in them. You should rest and elevate your foot to reduce swelling. You may use ice packs as needed. Return for worse pain, swelling, red streaks up the foot, weakness, breathing problems or other concerns as needed. Scripts Prednisone (Prednisone) 20 Mg Tab 40 MG PO DAILY, #10 TAB 0 Refills Prov: CK KEARNEY MD 01/23/21 Hydrocodone Bit/Acetaminophen (HYDROcodone/APAP 5 MG/325 MG TAB) 1 Tab Tab 1 TAB PO Q6H for Pain, #12 TAB 0 Refills Prov: KC KEARNEY MD 01/23/21 CK KEARNEY MD Jan 23, 2021 05:36
[2021-01-23] MEDS ORDERED: ACHD5005 PO (05:42)
[2021-01-23] MEDS ORDERED: PRD20T PO (05:42)
[2021-01-23 05:51] VITALS: BP 151/109
--- NOTE | 2021-01-23 09:38 | Diagnostic Imaging Report ---
INDICATION: Left foot pain, injury COMPARISON: None FINDINGS: 3 views of the left foot demonstrate no fracture or dislocation. Articular surfaces are normal. No bony erosion seen. No radiopaque foreign body. IMPRESSION: Negative left foot Dictated by: Dictated on workstation # [id number]
== END 2021-01-23 05:45 | disposition home or self-care (01) ==
LOC: EDUNIT# 03:17 → ER 03:21
DX: M79.675 Pain in left toe(s) (principal); F17.210 Nicotine dependence, cigarettes, uncomplicated
CPT/HCPCS: 73630

== ENCOUNTER 2022-06-26 20:01 | Emergency (ER) | payer SELFPAY ==
[~2022-06-26] VITALS: Ht 175.3 cm; Wt 88.5 kg
[~2022-06-26 20:01] MED LIST changes: +ACHD5005 PO; -CLIN150C18 PO; +CLIN150C20 PO; +PRD20T PO
--- NOTE | 2022-06-26 20:42 | ED Lower Extremity ---
General Chief Complaint: Lower Extremity Stated Complaint: LEFT KNEE PAIN Nursing Triage Note: PT AMB TO ED BY POV WITH C/O L KNEE PAIN. PAIN BEGAN 2 WEEKS AGO, DENIES INJURY. HAS TRIED TAKING IBUPROFEN WITH NO RELIEF. Source: patient History of Present Illness Date Seen by Provider: Jun 26, 2022 Time Seen by Provider: 20:35 Initial Comments PT ARRIVES VIA POV FROM HOME C/O LEFT KNEE PAIN AND SWELLING X 2 WEEKS NO KNOWN INJURY NO HISTORY OF PROBLEMS WITH THIS KNEE TOOK 1 DOSE OF IBUPROFEN YESTERDAY AT 11 AM SYMPTOMS NO DIFFERENT TODAY HAS NOT SOUGHT CARE AT ANY TIME UNTIL TONIGHT PCP: IAN-CARMEN Allergies and Home Medications Allergies Coded Allergies: cephalexin (Verified Allergy, Intermediate, FACIAL SWELLING, 06/26/22) Penicillins (Verified Allergy, Unknown, 03/11/06) Patient Home Medication List Home Medication List Reviewed: Yes Hydrocodone Bit/Acetaminophen (HYDROcodone/APAP 5 MG/325 MG TAB) 1 Tab Tab, 1 TAB PO Q6H Prescribed by: CK KEARNEY on 01/23/21 0542 Meloxicam (Meloxicam) 15 Mg Tablet, 15 MG PO DAILY Prescribed by: JUANA JOSEPH on 06/26/222140 Prednisone (Prednisone) 20 Mg Tab, 40 MG PO DAILY Prescribed by: CK KEARNEY on 01/23/21 0542 Review of Systems Constitutional: no symptoms reported Musculoskeletal: see HPI Skin: no symptoms reported Psychiatric/Neurological: No Symptoms Reported Past Jylztvr-Jhdkks-Vqlmah Hx Patient Social History Tobacco Use?: Yes Tobacco type used: Cigarettes Smoking Status: Current Everyday Smoker Smokeless Tobacco Frequency: Current Everyday User Use of E-Cig and/or Vaping dev: No Substance use?: No Alcohol Use?: Yes Alcohol type: Beer Alcohol Frequency: Couple times a week Pt feels they are or have been: No Immunizations Up To Date Tetanus Booster (TDap): Unknown Influenza Vaccine Up-to-Date: No; Not Current Past Medical History Surgeries: No Respiratory: No Cardiac: No Neurological: No Sexually Transmitted Disease: No Genitourinary: Yes Kidney Stones Gastrointestinal: No Musculoskeletal: No Endocrine: No HEENT: Yes (DENTAL ISSUES) Cancer: No Psychosocial: No Integumentary: No Blood Disorders: No Family Medical History No Pertinent Family Hx Physical Exam Vital Signs Vital Signs - First Documented 06/26/22 20:20 Temp 36.8 Pulse 88 Resp 18 B/P (MAP) 155/98 (117) Pulse Ox 97 O2 Delivery Room Air Capillary Refill : Less Than 3 Seconds Height, Weight, BMI Height: 5'9.00" Weight: 198lbs. 0.0oz. 89.975105au; 28.00 BMI Method:Stated General Appearance: WD/WN, no apparent distress Hips: left hip normal inspection Legs: left leg normal inspection Knees: left knee bone tenderness, left knee joint effusion, left knee pain, left knee soft tissue tenderness, left knee swelling, left knee other (LATERAL AND SUPERIOR ASPECTS OF LEFT KNEE. LIMITED ROM DUE TO PAIN, UNABLE TO ASSESS LIGAMENT LAXITY DUE TO PAIN AND SWELLING. NO EXTERNAL EVIDENCE OF TRAUMA TO KNEE. ) Ankles: left ankle normal inspection Feet: left foot normal inspection Neurologic/Tendon: normal sensation, normal motor functions, normal tendon functions Neurologic/Psychiatric: templer head II-XII nml as tested, no motor/sensory deficits, alert, normal mood/affect, oriented x 3 Skin: normal color, warm/dry, tattoos/piercings Procedures/Interventions Splinting and Joint Reduction : Mike wrap: Yes Immobilizers: 24 inch Knee Ordered: Crutches Progress/Results/Core Measures Results/Orders My Orders Orders - JUANA JOSEPH DO Knee, Left, 3 Views (06/26/22 20:38) Mike Bandage (06/26/22 21:41) Crutches (06/26/22 21:41) Knee Immobilizer (06/26/22 21:41) Vital Signs/I&O 06/26/22 06/26/22 20:20 21:57 Temp 36.8 36.8 Pulse 88 88 Resp 18 18 B/P (MAP) 155/98 (117) 155/98 Pulse Ox 97 97 O2 Delivery Room Air Room Air Blood Pressure Mean: 117 Progress Progress Note : Progress Note MIKE WRAP AND KNEE IMMOBILIZER PLACED, AND PT SENT HOME ON CRUTCHES GIVEN TORADOL SHOT REVIEWED OLD CHARTS, PT HAS MULTIPLE VISITS--ESSENTIALLY ALL FOR VARIOUS PAIN COMPLAINTS, WITH A COUPLE OF ADMITS-REVIEWED ER RECORDS, H&P'S, TESTS/PROCEDURES, CONSULTS AND DISCHARGE SUMMARIES. REVIEWED XRAY RESULTS, ANTICIPATED COURSE, MEDICATIONS, SYMPTOMATIC TREATMENT, NEED FOR FOLLOW UP WITH ORTHOPEDICS, AND RETURN PRECAUTIONS DISCUSSED WITH PT AND FEMALE S.O. Diagnostic Imaging Comments XRAYS LEFT KNEE--PER RADIOLOGIST REPORT AT 2137 FINDINGS: 3 views of the knee. There is a nonspecific large joint effusion. No fracture or dislocation appreciated. IMPRESSION: Joint effusion with no acute osseous abnormality. Reviewed: Reviewed by Me Departure Impression Primary Impression: Pain and swelling of left knee Disposition: HOME, SELF-CARE Condition: Stable Departure-Patient Inst. Decision time for Depature: 21:39 Referrals: NO,LOCAL PHYSICIAN (PCP) Primary Care Physician GUSTAVO DREW MD Patient Instructions: Going Up and Down Curbs or Stairs With a Walker or Crutches, How to Use Crutches, How to Use an Elastic Bandage, Knee Immobilizer (DC), Knee Pain ED Add. Discharge Instructions: MIKE WRAP, KNEE IMMOBILIZER AND CRUTCHES AT ALL TIMES ELEVATE LEG MUCH POSSIBLE ICE TO AREA AT 20 MINUTE INTERVALS FOLLOW UP WITH DR. DREW, ORTHOPEDIC SURGEON, NEXT WEEK FOR FURTHER CARE--CALL ON WEDNESDAY MORNING TO SCHEDULE AN APPOINTMENT. OR YOU MAY FOLLOW UP WITH ORTHOPEDIC SURGEON OF CHOICE. All discharge instructions reviewed with patient and/or family. Voiced understanding. Scripts Meloxicam (Meloxicam) 15 Mg Tablet 15 MG PO DAILY, #10 TAB Prov: JUANA JOSEPH DO 06/26/22 JUANA JOSEPH DO Jun 26, 2022 20:42
--- NOTE | 2022-06-26 21:31 | Diagnostic Imaging Report ---
INDICATION: Knee pain. EXAMINATION: Left knee, 06/26/2022. FINDINGS: 3 views of the knee. There is a nonspecific large joint effusion. No fracture or dislocation appreciated. IMPRESSION: Joint effusion with no acute osseous abnormality. Dictated by: Dictated on workstation # [id number]
[2022-06-26] MEDS ORDERED: MELO15TA39 PO (21:41)
[2022-06-26 21:57] VITALS: BP 155/98
== END 2022-06-26 21:57 | disposition home or self-care (01) ==
LOC: EDUNIT# 20:01 → ER 20:03
DX: M25.462 Effusion, left knee (principal); F17.210 Nicotine dependence, cigarettes, uncomplicated; Z28.310 Unvaccinated for COVID-19
CPT/HCPCS: 73562

== ENCOUNTER 2022-11-16 16:37 | Emergency (ER) | payer SELFPAY ==
[~2022-11-16] VITALS: Ht 175.3 cm; Wt 91.6 kg
[~2022-11-16 16:37] MED LIST changes: +MELO15TA39 PO
[2022-11-16 16:49] VITALS: BP 161/96
--- NOTE | 2022-11-16 17:06 | ED Upper Extremity ---
General Chief Complaint: Foreign Body Stated Complaint: FB IN LEFT THUMB Nursing Triage Note: PT AMBULATE TO TRIAGE WITH C/O PART OF A CONCRETE HAMMER IN LEFT THUMB. PT STATES HE WAS HAMMERING A PRY BAR AND PART OF THE HAMMER BROKE OFF AND HIT LEFT THUMB. Source: patient Exam Limitations: no limitations History of Present Illness Date Seen by Provider: Nov 16, 2022 Time Seen by Provider: 17:03 Initial Comments 42-year-old male presents to the ER with reports of foreign body in left thumb. He states that around 3 PM he was working in his garage and a piece of metal from his hammer broke off and went into his thumb. He was seen at the [facility] in [facility] and given a tetanus. The provider there was not comfortable removing the foreign body, so he came here. Allergies and Home Medications Allergies Coded Allergies: cephalexin (Verified Allergy, Intermediate, FACIAL SWELLING, 06/26/22) Penicillins (Verified Allergy, Unknown, 03/11/06) Patient Home Medication List Home Medication List Reviewed: Yes Doxycycline Hyclate (Doxycycline Hyclate) 100 Mg Tablet.dr, 100 MG PO BID Prescribed by: Milana Garcias on 11/16/22 1731 Hydrocodone Bit/Acetaminophen (HYDROcodone/APAP 5 MG/325 MG TAB) 1 Tab Tab, 1 TAB PO Q6H Prescribed by: CK KEARNEY on 01/23/21 0542 Meloxicam (Meloxicam) 15 Mg Tablet, 15 MG PO DAILY Prescribed by: JUANA JOSEPH on 06/26/22 2141 Prednisone (Prednisone) 20 Mg Tab, 40 MG PO DAILY Prescribed by: CK KEARNEY on 01/23/21 0542 Review of Systems Constitutional: see HPI Past Zlxpnwe-Pccygs-Gymnhs Hx Patient Social History Tobacco Use?: Yes Tobacco type used: Cigarettes Smoking Status: Current Everyday Smoker Smokeless Tobacco Frequency: Never a User Use of E-Cig and/or Vaping dev: No Substance use?: No Alcohol Use?: Yes Alcohol Frequency: Daily Pt feels they are or have been: No Immunizations Up To Date Tetanus Booster (TDap): Unknown Past Medical History Surgeries: No Respiratory: No Cardiac: No Neurological: No Sexually Transmitted Disease: No Genitourinary: Yes Kidney Stones Gastrointestinal: No Musculoskeletal: No Endocrine: No HEENT: Yes (DENTAL ISSUES) Cancer: No Psychosocial: No Integumentary: No Blood Disorders: No Family Medical History No Pertinent Family Hx Physical Exam Vital Signs Vital Signs - First Documented 11/16/22 16:49 Temp 36.7 Pulse 77 Resp 17 B/P (MAP) 161/96 (117) O2 Delivery Room Air Capillary Refill : Less Than 3 Seconds Height, Weight, BMI Height: 5'9.00" Weight: 198lbs. 0.0oz. 89.691390vj; 29.00 BMI Method:Stated General Appearance: WD/WN, no apparent distress Neck: supple, normal inspection Cardiovascular: regular rate, rhythm Respiratory: lungs clear, normal breath sounds, no respiratory distress, no accessory muscle use Hand: Left, swelling (Small laceration to 2 thumb, foreign body palpated under skin) Neurologic/Psychiatric: alert, normal mood/affect Skin: normal color, warm/dry Procedures/Interventions I&D : Site: left thumb Blade Size: 11 Progress Area anesthetized with 1% lidocaine. Incision made with 11 blade. Foreign body removed successfully. Progress/Results/Core Measures Results/Orders Vital Signs/I&O 11/16/22 16:49 Temp 36.7 Pulse 77 Resp 17 B/P (MAP) 161/96 (117) O2 Delivery Room Air Blood Pressure Mean: 117 Progress Progress Note : Progress Note Patient seen and evaluated, resting comfortably in chair, no acute distress. Foreign body was removed, see procedure note. Tetanus has already been updated today. Will discharge with antibiotic for prophylaxis. Discharge instructions and return precautions provided. Departure Impression Primary Impression: Foreign body of thumb, left Qualified Codes: S60.352A - Superficial foreign body of left thumb, initial encounter Disposition: HOME, SELF-CARE Condition: Stable Departure-Patient Inst. Decision time for Depature: 17:26 Referrals: NO,LOCAL PHYSICIAN (PCP/Family) Primary Care Physician Patient Instructions: Foreign Body in Skin Add. Discharge Instructions: Complete full course of antibiotic as directed. Monitor for signs of infection including swelling, redness, discolored odorous drainage. Return for signs of infection, or any other new, concerning, or worsening symptoms. All discharge instructions reviewed with patient and/or family. Voiced understanding. Scripts Doxycycline Hyclate (Doxycycline Hyclate) 100 Mg Tablet.dr 100 MG PO BID for 7 Days, #14 TAB 0 Refills Prov: MILANA GARCIAS APRN 11/16/22 MILANA GARCIAS APRN Nov 16, 2022 17:06
[2022-11-16] MEDS ORDERED: DOXY-227 PO (17:31)
== END 2022-11-16 17:46 | disposition home or self-care (01) ==
LOC: EDUNIT# 16:37 → ER 16:39
DX: S61.022A Laceration with foreign body of left thumb without damage to nail, initial encounter (principal); F17.210 Nicotine dependence, cigarettes, uncomplicated; Z88.0 Allergy status to penicillin; Z28.310 Unvaccinated for COVID-19; W45.8XXA Other foreign body or object entering through skin, initial encounter; Y92.59 Other trade areas as the place of occurrence of the external cause; Y99.0 Civilian activity done for income or pay
CPT/HCPCS: 99281